=== PATIENT | male | born 1935 | race Caucasian/White ===

== ENCOUNTER → 2018-10-30 | Outpatient (CLI) | payer MEDICARE, OTHER | END | disposition home or self-care (01) | LOC: RAD 16:03 | PROVIDERS: ATTEND Family Medicine | DX: R60.0 Localized edema (principal); M79.89 Other specified soft tissue disorders ==

== ENCOUNTER 2019-10-05 19:39 | Inpatient (IN) | payer MEDICARE, OTHER ==
[~2019-10-05] VITALS: Ht 188 cm; Wt 75.0 kg
[2019-10-05] MEDS ORDERED: OMEP20TA62 PO (19:57)
[2019-10-05] MEDS ORDERED: CARB1TAB PO ×2 (19:57→23:06)
[2019-10-05] MEDS ORDERED: FURO-93 PO (19:57)
[2019-10-05] MEDS ORDERED: ATOR40TA78 PO (19:58)
[2019-10-05 20:10] LABS: BASOPHILS # (AUTO) 0.14 x10^3/uL (0-0.1); BASOPHILS % (AUTO) 2 % (0-1); EOSINOPHILS # (AUTO) 0.22 x10^3/uL (0-0.4); EOSINOPHILS % (AUTO) 2 % (1-7); LYMPHOCYTES # (AUTO) 2.18 x10^3/uL (1-3.4); LYMPHOCYTES % (AUTO) 23 % (22-44); MD NO; MEAN CORPUSCULAR HEMOGLOBIN 33.1 pg (27.5-34.5); MEAN CORPUSCULAR HGB CONC 32.4 g/dL (33.2-36.2); MEAN PLATELET VOLUME 8.9 fL (7.4-10.4); MONOCYTES # (AUTO) 1.09 x10^3/uL (0.2-0.8); MONOCYTES % (AUTO) 12 % (2-9); NEUTROPHILS # (AUTO) 5.82 x10^3/uL (1.8-6.8); NEUTROPHILS % (AUTO) 62 % (42-75); PLATELET COUNT 383 x10^3/uL (130-400); RED BLOOD COUNT 4.06 x10^6/uL (4.38-5.82); RED CELL DISTRIBUTION WIDTH 15.6 % (9.4-14.8)
--- NOTE | 2019-10-05 20:13 | NUR ---
THIS IS AN 83 YO MALE SENT OVER FROM ULTRASOUND FOR POSITIVE DVT TO RIGHT LEG RANGING FROM MIDDLE THIGH TO BELOW THE KNEE. PATIENT WAS HAVING WEAKNESS LAST WEEK TO RIGHT LEG WHILE OUT OF TOWN, WITH SOME MILD PAIN, INCREASED SWELLING SINCE THEN. 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 PATIENT STATES THERE IS NO PAIN AT THIS TIME. RIGHT LOWER LEG IS ERYTHEMOUS, EDEMETOUS, AND WARM TO TOUCH. VSS, SPO2 AND BP MONITORING IN PLACE. CALL LIGHT IN REACH, SPOUSE IN ROOM
--- NOTE | 2019-10-05 20:15 | NUR ---
PATIENT DENIES SOB/CP
[2019-10-05 20:20] LABS: CHLORIDE 108 mmol/L (98-107)
[2019-10-05 20:29] LABS: INTERNATIONAL NORMALIZED RATIO 1.1 (0.93-1.1); PROTHROMBIN TIME 11.7 Seconds (9.6-11.5)
[2019-10-05 20:33] LABS: ALANINE AMINOTRANSFERASE 7 U/L (12-78); ALBUMIN 2.8 g/dL (3.4-5.0); ALKALINE PHOSPHATASE 89 U/L (45-117); ANION GAP 5 mmol/L (5-15); BILIRUBIN,TOTAL 0.5 mg/dL (0.2-1.0); CALCIUM 8.6 mg/dL (8.5-10.1); CREATININE 0.91 mg/dL (0.7-1.3); TOTAL PROTEIN 7.1 g/dL (6.4-8.2)
--- NOTE | 2019-10-05 20:51 | NUR ---
PATIENT RESTING ON GURNEY, VSS, NAD, RESPIRATIONS EVEN AND UNLABORED. CALL LIGHT IN REACH
--- NOTE | 2019-10-05 21:24 | NUR ---
PIV PLACED, GILMA, ADMITTING PA IN ROOM
[2019-10-05] MEDS ORDERED: CARBIDOPA/LEVODOPA 10 MG/100 MG TABLET PO ONE (21:30)
--- NOTE | 2019-10-05 21:52 | NUR ---
REPORT TO CHARLIE SLATER. PLAN OF CARE DISCUSSED
[2019-10-05] MEDS ORDERED: ONDANSETRON ODT 4 MG PO PRN (22:00)
[2019-10-05] MEDS ORDERED: ACETAMINOPHEN 325 MG TABLET PO PRN (22:00)
[2019-10-05] MEDS ORDERED: POLYETHYLENE GLYCOL 17 GM PACKET PO PRN (22:00)
[2019-10-05] MEDS ORDERED: BISACODYL 10 MG SUPP PR PRN (22:00)
[2019-10-05] MEDS ORDERED: ATORVASTATIN 40 MG TABLET PO SCH (22:00)
--- NOTE | 2019-10-05 22:01 | NUR ---
DEL GONZALESMA: [phone]
[2019-10-05 22:57] VITALS: BP 130/62
[2019-10-05] MEDS: RIVAROXABAN 15 MG TABLET PO SCH (23:35)
[2019-10-05] MEDS: CARBIDOPA/LEVODOPA 10 MG/100 MG TABLET PO SCH (23:35)
[2019-10-05] MEDS: SODIUM CHLORIDE FLUSH 10ML SYR IVF SCH (23:37)
[2019-10-06 00:21] VITALS: BP 110/60
[2019-10-06 06:12] LABS: BASOPHILS # (AUTO) 0.09 x10^3/uL (0-0.1); BASOPHILS % (AUTO) 1 % (0-1); EOSINOPHILS # (AUTO) 0.24 x10^3/uL (0-0.4); EOSINOPHILS % (AUTO) 3 % (1-7); LYMPHOCYTES # (AUTO) 1.71 x10^3/uL (1-3.4); LYMPHOCYTES % (AUTO) 22 % (22-44); MD NO; MEAN CORPUSCULAR HEMOGLOBIN 33.2 pg (27.5-34.5); MEAN CORPUSCULAR HGB CONC 32.9 g/dL (33.2-36.2); MEAN CORPUSCULAR VOLUME 100.9 fL (81-97); MEAN PLATELET VOLUME 9.4 fL (7.4-10.4); MONOCYTES % (AUTO) 13 % (2-9); NEUTROPHILS # (AUTO) 4.68 x10^3/uL (1.8-6.8); NEUTROPHILS % (AUTO) 61 % (42-75); PLATELET COUNT 360 x10^3/uL (130-400); RED CELL DISTRIBUTION WIDTH 15.6 % (9.4-14.8)
[2019-10-06 07:15] VITALS: BP 116/66
[2019-10-06] MEDS: CARBIDOPA/LEVODOPA 10 MG/100 MG TABLET PO SCH (08:28)
[2019-10-06] MEDS: RIVAROXABAN 15 MG TABLET PO SCH (08:29)
[2019-10-06] MEDS: SODIUM CHLORIDE FLUSH 10ML SYR IVF SCH (08:30)
[2019-10-06] MEDS ORDERED: SENNA/DOCUSATE TABLET PO SCH (09:00)
[2019-10-06] MEDS ORDERED: CARBIDOPA/LEVODOPA 10 MG/100 MG TABLET PO SCH (09:00)
[2019-10-06] MEDS ORDERED: OMEPRAZOLE 20 MG CAPSULE.DR PO SCH (09:00)
[2019-10-06] MEDS ORDERED: FUROSEMIDE 20 MG TABLET PO SCH (09:00)
[2019-10-06 12:58] VITALS: BP 101/57
[2019-10-06] MEDS ORDERED: RIVA20TA PO (13:08)
[2019-10-06] MEDS ORDERED: RIVA15TA PO (13:08)
== END 2019-10-06 17:09 | disposition home or self-care (01) | DRG 300 ==
LOC: ED 21:51 → EDIP 22:31 → 3N 22:42 → DCLOUNGE 10-06 16:55
PROVIDERS: ADMIT Family Medicine; ATTEND Internal Medicine
DX: I82.411 Acute embolism and thrombosis of right femoral vein (principal); D68.69 Other thrombophilia; E78.5 Hyperlipidemia, unspecified; G20 Parkinson's disease; J84.10 Pulmonary fibrosis, unspecified; N31.9 Neuromuscular dysfunction of bladder, unspecified; Z66 Do not resuscitate; Z82.0 Family history of epilepsy and other diseases of the nervous system; Z82.49 Family history of ischemic heart disease and other diseases of the circulatory system; Z90.81 Acquired absence of spleen; Z93.3 Colostomy status; Z88.2 Allergy status to sulfonamides; Z88.8 Allergy status to other drugs, medicaments and biological substances
CPT/HCPCS: 36415; 80053; 82607; 85025; 85610; 85730; 93005; 99285; G0378

== ENCOUNTER → 2019-10-05 | Outpatient (CLI) | payer MEDICARE, OTHER ==
[~2019-10-05] MED LIST: ATOR40TA78 PO; CARB1TAB PO; FURO-93 PO; OMEP20TA62 PO; RIVA15TA PO; RIVA20TA PO
== END | disposition home or self-care (01) ==
LOC: RAD 18:27
PROVIDERS: ATTEND Family Medicine
DX: I82.431 Acute embolism and thrombosis of right popliteal vein (principal); I82.411 Acute embolism and thrombosis of right femoral vein